=== PATIENT | female | born 1980 | race Caucasian/White ===

== ENCOUNTER 2018-03-08 05:30 | Day surgery (SDC) | payer MEDICAID ==
[2018-03-06 13:50] LABS: BASOPHILS 0.1 % (0-2); EOSINOPHILS 2.5 % (0-7); HEMATOCRIT 39.8 % (36.0-48.0); HEMOGLOBIN 14.3 g/dL (12-16); IMMATURE GRANULOCYTES 0.2 % (0-5); LYMPHOCYTES 21.7 % (15-50); MCHC 35.9 g/dL (31.0-37.0); MCV 100.3 fL (80.0-100.0); MEAN PLATELET VOLUME 9.9 fL (7.4-10.4); MONOCYTES 3.9 % (2-11); NEUTROPHILS 71.6 % (40-80); PLATELET COUNT 230 10x3/uL (130-400); RBC 3.97 10x6/uL (4.00-5.40); RDW 12.3 % (11.5-14.5); WBC 8.9 10x3/uL (4.8-10.8)
[~2018-03-08] VITALS: Ht 170.2 cm; Wt 82.7 kg
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
[2018-03-08] MEDS ORDERED: VYVANSE30 MG (06:21)
[2018-03-08] MEDS ORDERED: ATIVAN0.5 MG PO (06:22)
[2018-03-08] MEDS ORDERED: PROTONIX40 MG PO (06:22)
[2018-03-08 06:36] VITALS: BP 107/56; Ht 170.2 cm; Wt 82.7 kg
== END 2018-03-08 12:15 | disposition home or self-care (01) ==
LOC: D.OPS 05:30 → D.PAN 07:30 → D.OPS 07:30
PROVIDERS: Obstetrics & Gynecology
DX: N80.2 Endometriosis of fallopian tube (principal); N80.1 Endometriosis of ovary; N73.6 Female pelvic peritoneal adhesions (postinfective)